=== PATIENT | female | born 1945 | race Caucasian/White ===

== ENCOUNTER 2017-11-22 21:54 | Emergency (ER) | payer OTHER, MEDICAID ==
[~2017-11-22] VITALS: Ht 165.1 cm; Wt 170.1 kg
[2017-11-22 22:50] VITALS: Ht 165.1 cm; Wt 170.1 kg
[2017-11-23 02:49] VITALS: BP 0/0
== END 2017-11-23 02:49 | disposition expired ==
LOC: ED 21:54
DX: I46.9 Cardiac arrest, cause unspecified (principal); I10 Essential (primary) hypertension; M79.7 Fibromyalgia